=== PATIENT | male | born 1965 | race African-American/Black ===

== ENCOUNTER 2018-11-06 16:38 | Emergency (ER) | payer BC ==
[~2018-11-06] VITALS: Ht 182.9 cm; Wt 126.1 kg
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
[2018-11-06 17:01] VITALS: BP 143/100
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
[2018-11-06] MEDS ORDERED: LIDODERM700 M1 TOPIC (18:28)
[2018-11-06] MEDS ORDERED: ROBAXIN-750750 MG PO (18:28)
[2018-11-06] MEDS ORDERED: IBUPROFEN600 MG ORAL (18:28)
[2018-11-06 18:39] VITALS: BP 140/99
--- NOTE | 2018-11-06 18:40 | NUR ---
ER DISCHARGE NOTE: Patient is cleared to be discharged per ERMD, pt is aox4, on room air, with stable vital signs. pt was given dc and prescription instructions, pt was able to verbalize understanding, pt id band removed without complications. pt is able to ambulate with steady gait. pt took all belongings.
== END 2018-11-06 18:40 | disposition home or self-care (01) ==
LOC: EMR 17:16
DX: S39.012A Strain of muscle, fascia and tendon of lower back, initial encounter (principal); S16.1XXA Strain of muscle, fascia and tendon at neck level, initial encounter; F07.81 Postconcussional syndrome; V43.52XA Car driver injured in collision with other type car in traffic accident, initial encounter; Y92.410 Unspecified street and highway as the place of occurrence of the external cause; I10 Essential (primary) hypertension
CPT/HCPCS: 99282